=== PATIENT | male | born 1960 | race Caucasian/White ===

== ENCOUNTER 2016-05-09 06:48 | Day surgery (SDC) | payer BC ==
[2016-05-04 16:47] LABS: HEMATOCRIT 40.7 % (40.0-51.0); HEMOGLOBIN 13.7 g/dL (13.6-17.8)
[2016-05-04 16:56] LABS: BUN (BLOOD UREA NITROGEN) 18 MG/DL (6-23); CALCIUM, SERUM 9.3 MG/DL (8.5-10.4); CHLORIDE, SERUM 105 MMOL/L (96-112); CO2 (CARBON DIOXIDE) 29 MMOL/L (24-34); CREATININE 1.26 MG/DL (0.70-1.30); GFR AFRICAN AMERICAN 74 ML/MIN (>=60); GFR NON AFRICAN AMERICAN 64 ML/MIN (>=60); GLUCOSE, SERUM 92 MG/DL (60-99); POTASSIUM, SERUM 4.6 MMOL/L (3.5-5.3); SODIUM, SERUM 140 MMOL/L (135-148)
--- NOTE | ~2016-05-09 | OP ---
Record Of Operation [facility] [place] [address] [place]. [address] NAME: GRACIE CHE : 60 STATUS : [facility]#: [id number] AGE: 55 ADM/REG DATE : 05/09/16 MR#: [id number] REPORT SERV DATE: 05/09/16 DICTATED BY: TALIB TAYLOR DATE: 05/09/16 REPORT STATUS : Draft TRANSCRIBED BY: MODL DATE: 05/09/16 DATE OF PROCEDURE: 05/09/2016 PREOPERATIVE DIAGNOSES: 1. Incarcerated left inguinal hernia. 2. Incarcerated small umbilical hernia. 3. Hypertension. POSTOPERATIVE DIAGNOSIS: 1. Incarcerated left inguinal hernia (pantaloon). 2. Incarcerated small umbilical hernia. 3. Hypertension. PROCEDURES: 1. Robotic incarcerated left inguinal hernia with mesh (pantaloon type). 2. Open laparoscopic assisted incarcerated umbilical hernia repair with mesh with a separate incision. ANESTHESIA: General. BLIND CLEANER: Marck. COMPLICATIONS: None. DRAINS: None. ESTIMATED BLOOD LOSS: 20 mL. FINDINGS: 1. The patient was noted to have a large incarcerated left inguinal hernia with some adhesions of the sigmoid colon to the peritoneum on the left pelvis. The hernia was incarcerated and was a large pantaloon type hernia with weakness of the entire direct and indirect floor. 2. The patient is noted have a small incarcerated umbilical hernia. This defect was closed with laparoscopic assistance after robotic repair with a separate incision through the umbilicus. OPERATIVE TECHNIQUE: The patient was brought to the operating room and placed on the table in supine position. He had preoperative IV antibiotics. He had sequential hose in place. He voided prior to procedure. He underwent general endotracheal anesthesia and was prepped and draped in sterile fashion. A time-out was completed. Local anesthesia was instilled to the supraumbilical skin. A 15 blade knife was used to make incision and a Veress needle was inserted and a water drop test safely performed. The Optiview 12 mm trocar was then inserted into the abdomen under direct visualization. The patient was then placed in Trendelenburg. Two midclavicular line 8 mm trocars were then placed under direct visualization parallel to the being the first trocar. At this point, the patient had been Record Of Operation [facility] [place] [address] [facility] [place]. [address] NAME: GRACIE CHE : 60 STATUS : [facility] PAT#: [id number] AGE: 55 ADM/REG DATE : 05/09/16 MR#: [id number] REPORT SERV DATE: 05/09/16 DICTATED BY: TALIB TAYLOR DATE: 05/09/16 REPORT STATUS : Draft TRANSCRIBED BY: MODL DATE: 05/09/16 placed in Trendelenburg. The abdomen was examined. There were some adhesions in the right lower quadrant from a previous incision and these were taken down sharply with scissors and with cautery. The patient was noted to have some adhesions of the sigmoid colon to the pelvis in the left lower quadrant and these were taken down to perform the procedure. At this point, the peritoneum was scored at the anterior iliac spine laterally and extended toward the median umbilical ligament. The peritoneum was then bluntly dissected in the avascular plane medially until Javier's ligament was identified. The dissection continued bluntly till Javier's ligament was seen past the midline and dissected below for approximately 2 cm. The dissection continued using blunt dissection until the direct hernia sac was identified. It was carefully bluntly reduced without difficulty. At this point, the patient's indirect inguinal hernia was identified. It was carefully bluntly dissected away from the vas and neurovascular structures of the cord that were identified and preserved throughout the procedure. Upon reduction of this very large lipoma of the cord and peritoneal fat. It was noted to be in continuity with the direct space. The entire hernia sac was reduced almost far proximal to where the vas joined the neurovascular structures, and under direct visualization, this dissection continued medially and laterally until the entire myopectineal space was completely dissected. There was no evidence of any other herniation or bleeding or other visual abnormalities. The patient prior to the robots being docked and the instruments inserted, had the pre-folded ProGrip mesh placed into the abdomen with a peritoneal stitch. It was then positioned properly and secured with pressure to cover the entire defective space. The mesh was noted to cover past the midline and below Javier's ligament for approximately 3 cm. It was far lateral to the indirect ring. There was no evidence of any involvement of the peritoneum near the mesh, and at this point, as there was no evidence of any other visual abnormalities, the peritoneum was closed with a V- Loc suture. The rest of the abdomen is examined and there was a small umbilical hernia. The robotic instruments at this time that had been previously docked and placed were removed, and the laparoscope was inserted among the far lateral ports. There were adhesions and incarcerated preperitoneal fat aimed at the direct hernia and this was reduced and excised with Hot Gustavo. The patient was then noted to have a 5 or 6 mm defect and the incarcerated fat was removed through the 12 mm trocar and discarded. The ventral Proceed 6 cm mesh was then placed into the abdomen with the straps. A stab incision was then made in the umbilicus and the straps were brought out with a suture passer and the incision was then extended after the mesh was secured to the anterior abdominal wall under direct visualization. There was no evidence of any other bleeding or visual abnormalities, and the umbilical defect was covered with significant overlap. Under tension, the fascial straps were then secured to the fascial edges of the defect with an interrupted 0 Vicryl suture to close the primary defect and enclose the straps to secure it to the anterior abdominal wall. There was no evidence of any bleeding or other visual abnormalities. At this point, the skin edges were reapproximated using interrupted subcuticular Monocryl sutures. Dermabond was applied to the skin, and he was extubated and taken to the recovery room in stable condition. All sponge and needle counts were reported correct. /DUNIA Talib Record Of Operation [address] [address] NAME: GRACIE CHE : 60 STATUS : [facility] PAT#: [id number] AGE: 55 ADM/REG DATE : 05/09/16 MR#: [id number] REPORT SERV DATE: 05/09/16 DICTATED BY: TALIB TAYLOR DATE: 05/09/16 REPORT STATUS : Draft TRANSCRIBED BY: MODL DATE: 05/09/16 Shante Taylor / [id number] CC: Shante Thomas M.D. Marty Scheinberg, M.D.
--- NOTE | ~2016-05-09 | HP ---
History And Physical [address] [place]. [address] NAME: GRACIE CHE : 60 STATUS : [facility]#: [id number] AGE: 55 ADM/REG DATE : 05/09/16 MR#: [id number] REPORT SERV DATE: 06/05/16 DICTATED BY: TALIB TAYLOR DATE: 06/05/16 REPORT STATUS : Draft TRANSCRIBED BY: MODL DATE: 06/05/16 DATE OF ADMISSION: 05/09/2016 PROCEDURE DATE: 05/09/2016. HISTORY OF PRESENT ILLNESS: This 55-year-old gentleman presents with symptomatic left and umbilical hernias. They are both incarcerated. The left is a very large hernia that extends toward the scrotum. He denies any change in bowel or bladder habits, weight loss, fever, chills, or other constitutional symptoms. He has no history of hypertension. He denies any constitutional symptoms. He is aware of the risks, benefits, and alternatives of the procedure, and wished to proceed. PAST MEDICAL HISTORY: As above. PAST SURGICAL HISTORY: No previous history of hernia surgery. ALLERGIES: NO KNOWN DRUG OR LATEX ALLERGIES. SOCIAL HISTORY: The patient denies alcohol, tobacco, or illicit drug usage. FAMILY HISTORY: Negative for collagen vascular disease. REVIEW OF SYSTEMS: No headache, blurred vision, dizziness, chest pain, shortness of breath, cough, dyspnea on exertion, syncope, palpitations, jaundice, or itching. MEDICATIONS: Please see the hospital chart. PHYSICAL EXAMINATION: GENERAL: Well-developed male, in no apparent distress. NECK: Supple. No adenopathy. CARDIOVASCULAR: Regular rate and rhythm. RESPIRATORY: Clear to auscultation. ABDOMEN: Soft, nondistended, and nontender. The patient has an incarcerated umbilical and left inguinal hernias. There are no peritoneal signs. BACK: No CVA tenderness. EXTREMITIES: No clubbing, cyanosis, edema, or jaundice. ASSESSMENT: 1. Incarcerated left inguinal hernia. 2. Incarcerated umbilical hernia. PLAN: The patient will have a robotic left inguinal hernia repair with mesh, and possible laparoscopic umbilical hernia with mesh, possible open. He is aware of the risks, benefits, and alternatives, and wished to proceed. History And Physical [address] [place]. [address] NAME: GRACIE CHE : 60 STATUS : [facility]#: [id number] AGE: 55 ADM/REG DATE : 05/09/16 MR#: [id number] REPORT SERV DATE: 06/05/16 DICTATED BY: TALIB TAYLOR DATE: 06/05/16 REPORT STATUS : Draft TRANSCRIBED BY: DUNIA DATE: 06/05/16 /DUNIA Talib Taylor M.D. / [id number] CC: Shante Thomas M.D.
[~2016-05-09 06:48] MED LIST: ASA5GR PO; FLEX PO; METAMUCIL CAN7 OZ PO; MULTIVIT/MIN PO; NAP500 PO; PREV30 PO; ZESTRIL20 MG PO
== END 2016-05-09 13:51 | disposition home or self-care (01) ==
LOC: SDC 06:48
PROVIDERS: Surgery
PROC: 0YU60JZ Supplement Left Inguinal Region with Synthetic Substitute, Open Approach (ICD-10-PCS; principal; 2016-05-09 07:00)
PROC: 0WUF4JZ Supplement Abdominal Wall with Synthetic Substitute, Percutaneous Endoscopic Approach (ICD-10-PCS; 2016-05-09 07:00)
DX: K40.30 Unilateral inguinal hernia, with obstruction, without gangrene, not specified as recurrent (principal); K42.0 Umbilical hernia with obstruction, without gangrene; I10 Essential (primary) hypertension; K21.9 Gastro-esophageal reflux disease without esophagitis; Z98.890 Other specified postprocedural states; Z79.899 Other long term (current) drug therapy; Z79.82 Long term (current) use of aspirin
CPT/HCPCS: 80048; 85014; 85018; 93005; A9270-GY; C1781; J0690; J1885; J2250; J2270; J2405; J2550; J2710; J3010